=== PATIENT | male | born 1975 | race Caucasian/White ===

== ENCOUNTER → 2016-09-14 | Outpatient (CLI) | payer OTHER ==
[~2016-09-14] MED LIST: AGM875 PO; SULF800T23 PO
--- NOTE | 2016-09-14 13:48 | DIAGNOSTIC IMAGING REPORT ---
RIGHT HAND MIN 3 VIEWS CLINICAL HISTORY: Right hand pain. COMPARISON: None. DISCUSSION: The patient was unable to straighten his fingers. No fractures are visualized. There are no erosive or destructive changes. IMPRESSION: 1. No fractures or dislocations identified 2. The patient was unable to straighten his fingers. Electronically signed by: Khoi Sorenson M.D. 09/14/2016 1:47 PM Dictated Date/Time: 09/14/2016 1:46 PM
== END | disposition home or self-care (01) ==
LOC: C.RDSM 13:33
PROVIDERS: ATTEND Family Medicine
DX: M79.641 Pain in right hand (principal); M25.531 Pain in right wrist